=== PATIENT | female | born 1955 | race Caucasian/White ===

== ENCOUNTER → 2016-09-24 | Outpatient (CLI) | payer BC ==
[~2016-09-24] MED LIST: CICL34.62 TP; LSNP10T PO
[2016-09-25 11:09] VITALS: BP 139/99
--- NOTE | 2016-09-25 11:09 | Urgent Care T Sheet Gen (E) ---
Intake General Temperature (Fahrenheit): 97.6 Pulse: 83 Blood Pressure Systolic: 139 Blood Pressure Diastolic: 99 Respirations: 16 SPO2: 97 Chief Complaint: right great toe fungal infection Source: Patient Exam Limitations: No limitations History of Present Illness Initial Comments 61 year old female presents with concerns regarding a fungal infection on right great toe. States she has had this in the past and was treated with a topical agent and it cleared up. States she noticed that it has returned last week. States it doesn't hurt but feels funny and looks bad. States she has been checking her blood pressure that home and it has been running high >140/90. Denies chest pain, shortness of breath, headache, or dizziness. Onset & Duration: Weeks (last week) Timing: Still present Severity: Moderate Modifying Factors: None Associated Symptoms: Denies symptoms Recent Trauma: No Similar Sympotms Previously: Yes Prior Treatment: Treated by doctor Home Meds Active Scripts Ciclopirox/Ure/Camph/Menth/Euc (Ciclopirox 8% Treatment Kit)34.6 Ml Eyfnvpao84.6 Ml TP DAILY #1 KIT Ref 1 Prov:LILO COMBS JUAN 09/24/16 Lisinopril 10 Mg [id number] Mg PO DAILY #30 TAB Prov:LILO COMBS JUAN 09/24/16 Respiratory Constitutional Symptoms: No No syptoms reported, No See HPI, No Chills, No Diaphoresis, No Fever, No Malaise, No Weakness, No Other EENTM: No Eye pain, No Blurred vision, No Eye tearing, No Double Vision, No Ear pain, No Ear discharge, No Nose Pain, No Nose Congestion, No Throat pain, No Throat swelling, No Mouth Pain, No Mouth Swelling, No Other Respiratory: No Cough, No Orthopnea, No Short of breath, No Stridor, No Wheezing, No Other Cardiovascular: See HPINo Chest pain, No Edema, No Palpitations, No Syncope, No Other Gastrointestinal/Abdominal: No Abdominal pain, No Constipation, No Diarrhea, No Nausea, No Vomiting, No Other, No RUQ, No LUQ, No RLQ, No LLQ Genitourinary: No symptoms reported Skin: No Change in color, Change in hair/nails (Right great toe nail is yellow and brittle)No Dryness, No Lesions, No Lumps, No Rash, No Other Neurological: No Anxiety, No Depressed, No Emotional problems, No Headache, No Numbness, No Paresthesia, No Pre-existing deficit, No Seizure, No Tingling, No Tremors, No Weakness, No Other Hematologic/Lymphatic: No symptoms reported Immunologic/Allergies: No symptoms reported All Other Systems Reviewed Remaining Systems: All other systems reviewed with negative findings Physical Exam Physical Exam General Appearance: WD/WN No apparent distress Eyes, Ears, Nose, Throat Ex: PERRL/EOMI Normal ENT inspection TMs normal Pharynx normal Neck Exam: Non tender Full range of motion Supple Normal inspection Normal thyroid Respiratory Exam: Chest non-tender Lungs clear Normal breath sounds No respiratory distress No accessory muscles used Cardiovascular Exam: Regular rate, rhythm No edema No gallop No JVD No murmur GI/ Exam: Non tender No organomegaly Normal bowel sounds No distention Back Exam: Normal Inspection No CVA tenderness No vertebral tenderness Skin Exam: Normal color Warm/dry/intact No rashes No embolic lesions Other ( Right great toe nail with hyperkeratosis and yellow streaks. ) Extremity Exam: Non-tender Full range of motion Normal capillary refill No pedal edema Neurologic/Psychiatric Exam: Oriented times 4 CN's II-X nml No motor deficits No sensory deficits Mood/affect nml Lymphatic Exam: No adenopathy Departure Urgent Care Impression Chief Complaint: right great toe fungal infection Impression: Primary Impression: Hypertension Qualified Code: I10 - Essential (primary) hypertension Additional Impression: Onychomycosis of right great toe Departure Disposition: 01 HOME OR SELF-CARE Condition: Stable Referrals: Justin Crowder MD (PCP) Additional Instructions: Rechecked BP and 160/101. Discussed with patient the risk of Hypertension and while urgent care is not the ideal setting to initiate BP medication, there is concern given elevated BP. Discussed that given her high BP readings at home would be advisable to start medication. Discussed diet and exercise to decrease blood pressure. Pt would like to start BP medication. Discussed Lisinopril and adverse drug reactions and risks vs benefits. Advised that pt check BP and log twice a day and follow up with PCP next week. Advised that if she develops headache, dizziness, weakness, slurred speech, chest pain, shortness of breath, she must report to ED. Discussed that topical treatment of subungual onychomycosis has a very high failure rate but oral therapy can have systemic effects. Pt states topical has worked for her in the past and she would like to try it again. Rx for Ciclopirox treatment kit sent and reviewed use with patients. Encouraged her to clean nail with alcohol every 7 days and file and clip. Follow up with PCP. Scripts Ciclopirox/Ure/Camph/Menth/Euc (Ciclopirox 8% Treatment Kit)34.6 Ml Aatuvhzp79.6 Ml TP DAILY #1 KIT Ref 1 Prov:LILO COMBS APRN 09/24/16 Lisinopril 10 Mg [id number] Mg PO DAILY #30 TAB Prov:LILO COMBS APRN 09/24/16 End of report . LILO COMBS APRN Sep 24, 2016 11:22
== END ==
LOC: MHUC 10:37
PROVIDERS: ATTEND Nurse Practitioner Family
DX: I10 Essential (primary) hypertension (principal); B35.1 Tinea unguium
CPT/HCPCS: 99213

== ENCOUNTER 2016-09-26 19:02 | Emergency (ER) | payer BC ==
[~2016-09-26] VITALS: Ht 162.6 cm; Wt 70.8 kg
--- OUTSIDE RECORDS SUMMARY | 2016-09-26 19:05 | XMS REPORT | Continuity of Care Document ---
Author Author [facility] Address Unknown Phone Unavailable Allergies Medications Problems Date Dx Coded Attending Type Code Diagnosis Diagnosed By 02/25/2015 Justin Crowder MD Ot V76.12 03/06/2015 Justin Crowder MD Ot V76.12 03/28/2015 Justin Crowder MD Ot V76.12 03/28/2015 Justin Corwder MD Ot V76.12 06/16/2015 Justin Crowder MD Ot V76.12 Procedures Results Encounters ACCT No. Visit Date/Time Discharge Status Pt. Type Provider Facility Loc./Unit Complaint [id number] 03/28/2015 09:50:00 2014 23:59:59 CLS Outpatient LOCO BYRD [facility] [id number] 02/25/2015 07:57:00 2014 23:59:59 CLS Outpatient Vel HARRIS [facility] [id number] 04/12/2013 07:31:00 2012 23:59:59 CLS Outpatient Vel HARRIS [facility] RAD
--- OUTSIDE RECORDS SUMMARY | 2016-09-26 19:07 | XMS REPORT | Continuity of Care Document ---
Author Author [facility] Address Unknown Phone Unavailable Allergies Medications Problems Date Dx Coded Attending Type Code Diagnosis Diagnosed By 02/25/2015 Justin Crowder MD Ot V76.12 03/06/2015 Justin Crowder MD Ot V76.12 03/28/2015 Justin Crowder MD Ot V76.12 03/28/2015 Justin Crowder MD Ot V76.12 06/16/2015 Justin Crowder MD Ot V76.12 Procedures Results Encounters ACCT No. Visit Date/Time Discharge Status Pt. Type Provider Facility Loc./Unit Complaint [id number] 03/28/2015 09:50:00 2014 23:59:59 CLS Outpatient LOCO BYRD [facility] [id number] 02/25/2015 07:57:00 2014 23:59:59 CLS Outpatient Vel HARRIS [facility] RAD [id number] 04/12/2013 07:31:00 2012 23:59:59 CLS Outpatient Vel HARRIS [facility] RAD
[2016-09-26] MEDS ORDERED: KETOROLAC 30 MG/ML (TORADOL) 1 ML VIAL IV ONE (19:45)
[2016-09-26] MEDS ORDERED: SODIUM CHLORIDE FLUSH 10 ML SYR IV PRN (19:45)
[2016-09-26] MEDS ORDERED: SODIUM CHLORIDE 250 ML IV PRN (19:45)
[2016-09-26] MEDS ORDERED: ASPIRIN 81 MG CHEW (LOW-DOSE) PO ONE (19:45)
[2016-09-26] MEDS ORDERED: SODIUM CHLORIDE FLUSH 3 ML SYR IV PRN (19:45)
[2016-09-26] MEDS ORDERED: LORazepam 2 MG/ML (ATIVAN) 1 ML VIAL IV ONE (19:45)
[2016-09-26 19:57] LABS: BASOPHILS % (AUTO) 1 % (0-2); EOSINOPHILS # (AUTO) 0.2 10^3uL; EOSINOPHILS % (AUTO) 3 % (0-4); LYMPHOCYTES # (AUTO) 3.1 X10^3; MEAN CORPUSCULAR HEMOGLOBIN 29.7 PG (26.0-34.0); MEAN CORPUSCULAR VOLUME 87 FL (80-100); MEAN PLATELET VOLUME 9.4 FL (6.0-9.5); MONOCYTES # (AUTO) 0.6 X10^3; MONOCYTES % (AUTO) 8 % (3-11); NEUTROPHILS % (AUTO) 44 % (51-67); PLATELET COUNT 341 10^3uL (150-450); WHITE BLOOD COUNT 6.92 10^3uL (4.0-11.0)
[2016-09-26 20:08] LABS: ALBUMIN 4.4 g/dL (3.4-5.0); ALKALINE PHOSPHATASE 73 U/L (38-126); ANION GAP 14.8 MEQ/L (3-15); BUN/CREATININE RATIO 14 (10-20); CREATINE KINASE 121 U/L (30-135); TOTAL PROTEIN 7.2 g/dL (6.4-8.5)
--- NOTE | 2016-09-26 21:20 | NUR ---
Patient report to Argenis Nguyen RN who now assumes care of patient.
[2016-09-26 22:01] VITALS: BP 149/82
--- NOTE | 2016-09-27 09:06 | Diagnostic Imaging Report ---
INDICATION: Chest pain Portable chest 8:51 PM Heart size and pulmonary vascularity are normal. Lungs are clear. There are no effusions or pneumothoraces. IMPRESSION: Negative chest Dictated by: Dictated on workstation # [id number]
== END 2016-09-26 22:00 | disposition home or self-care (01) ==
LOC: ED 19:02
DX: I10 Essential (primary) hypertension (principal); R07.9 Chest pain, unspecified
CPT/HCPCS: 36415; 71010; 80053; 82550; 82553; 83880; 84443; 84484; 85025; 85610; 85730; 93005; 96374; 96375; 99285; J1885; J2060; 93010; 99284